=== PATIENT | female | born 1955 | race Caucasian/White ===

== ENCOUNTER 2023-07-09 19:45 | Inpatient (IN) | payer MEDICARE, OTHER ==
[~2023-07-09] VITALS: Ht 157.5 cm; Wt 80.3 kg
[2023-07-09 19:45] VITALS: BP 118/70; TEMP 98.3; O2SAT 93
[2023-07-09] MEDS ORDERED: MAGNESIUM HYDROXIDE 30 ML LIQUID UDC GT PRN (21:30)
[2023-07-09] MEDS ORDERED: ONDANSETRON 4 MG/2 ML VIAL IV PRN (21:30)
[2023-07-09] MEDS ORDERED: ALBUTEROL SULFATE 2.5 MG/3 ML NEBU NEB PRN (21:30)
[2023-07-09] MEDS ORDERED: GABA-532 GT (21:57)
[2023-07-09] MEDS ORDERED: LEVO200T9 GT (21:57)
[2023-07-09] MEDS ORDERED: LEVE100S GT (21:57)
[2023-07-09] MEDS ORDERED: OMEG1400 GT (21:57)
[2023-07-09] MEDS ORDERED: MULT-213 GT (21:57)
[2023-07-09] MEDS ORDERED: ACET-637 GT (21:57)
[2023-07-09] MEDS ORDERED: SENN8.6T19 GT (21:57)
[2023-07-09] MEDS ORDERED: FAMO20TA8 GT (21:57)
[2023-07-09] MEDS ORDERED: MAGN400O6 GT (21:57)
[2023-07-09] MEDS ORDERED: ACET325T53 GT ×2 (21:57)
[2023-07-09] MEDS ORDERED: METO25TA6 GT (21:57)
[2023-07-09] MEDS ORDERED: VALP250S4 GT (21:57)
[2023-07-09] MEDS ORDERED: CHOL100062 GT (21:57)
[2023-07-09] MEDS ORDERED: QUET50TA GT (21:57)
[2023-07-09] MEDS ORDERED: SERT25TA GT (21:57)
[2023-07-09 23:00] VITALS: O2SAT 98
[2023-07-10] VITALS (10 sets, daily range): BP systolic 107–133; BP diastolic 57–78; TEMP 98–99.8; O2SAT 94–99
[2023-07-10] MEDS: JEVITY 1.2 1000 ML LIQUID GT PRN (00:53)
[2023-07-10] MEDS ORDERED: CLOB15CR10 TP (05:17)
[2023-07-10] MEDS ORDERED: CHLO473M3 PO (05:17)
[2023-07-10] MEDS ORDERED: DOCU100T2 GT (05:17)
[2023-07-10] MEDS ORDERED: NA P133E RC (05:17)
[2023-07-10] MEDS ORDERED: DIPH25TA25 GT (05:17)
[2023-07-10] MEDS ORDERED: IPRA4AER IH (05:17)
[2023-07-10] MEDS ORDERED: CRAN425C6 GT (05:17)
[2023-07-10] MEDS ORDERED: BISA10SU95 RC (05:17)
[2023-07-10] MEDS ORDERED: FERR220S16 GT (05:17)
[2023-07-10] MEDS ORDERED: DOXY100T2 GT (05:17)
[2023-07-10] MEDS ORDERED: ATOR20TA GT (05:17)
[2023-07-10] MEDS ORDERED: POLY15DR27 EACHEYE (05:17)
[2023-07-10] MEDS ORDERED: ASPI-1169 GT (05:17)
[2023-07-10] MEDS ORDERED: BISACODYL 10 MG SUPP.RECT RC PRN (06:15)
[2023-07-10] MEDS ORDERED: MAGNESIUM HYDROXIDE 30 ML LIQUID UDC GT PRN (06:15)
[2023-07-10] MEDS ORDERED: FLEET ENEMA 133 ML BOTTLE RC PRN (06:15)
[2023-07-10] MEDS: PANTOPRAZOLE ORAL SUSPENSION 40 MG SUSPDR.PKT GT SCH (06:46)
[2023-07-10] MEDS: LEVOTHYROXINE SODIUM 200 MCG TABLET GT SCH (06:46)
[2023-07-10] MEDS: ACETAMINOPHEN 650 MG/20.3 ML LIQUID UDC GT PRN (06:49)
[2023-07-10 06:59] LABS: BASOPHILS # (AUTO) 0.1 K/UL (0.0-0.2); BASOPHILS % (AUTO) 0.4 % (0.0-2.0); EOSINOPHILS # (AUTO) 0.4 K/uL (0.0-0.7); EOSINOPHILS % (AUTO) 2.9 % (0.0-7.0); LYMPHOCYTES % (AUTO) 23.9 % (20.5-51.5); MEAN CORPUSCULAR HEMOGLOBIN 28.1 uug (24.7-32.8); MEAN CORPUSCULAR HGB CONC 32 g/dL (32.3-35.6); MEAN CORPUSCULAR VOLUME 87.4 fL (75.5-95.3); MONOCYTES # (AUTO) 0.8 K/uL (0.1-1.30); MONOCYTES % (AUTO) 6.5 % (0.0-11.0); NEUTROPHILS # (AUTO) 8.4 K/uL (1.8-8.9); NEUTROPHILS % (AUTO) 66.3 % (38.5-71.5); PLATELET COUNT (AUTO) 662 K/uL (179-408); RED BLOOD CELL COUNT(AUTO) 3.21 MIL/uL (3.63-4.92); RED CELL DISTRIBUTION WIDTH 17.4 % (12.3-17.7); WHITE BLOOD COUNT (AUTO) 12.7 K/uL (3.8-11.8)
[2023-07-10] MEDS ORDERED: PANTOPRAZOLE SODIUM 40 MG TABLET.DR PO SCH (07:00)
[2023-07-10 07:16] LABS: DIFFERENTIAL COMMENT 1
[2023-07-10 07:26] LABS: ALANINE AMINOTRANSFERASE 17 U/L (14-59); ALBUMIN 2.6 g/dL (3.4-5.0); ALKALINE PHOSPHATASE 58 U/L (50-136); ASPARTATE AMINOTRANSFERASE 15 U/L (15-37); BILIRUBIN,TOTAL 0.5 mg/dL (0.2-1.0); CALCIUM 9.6 mg/dL (8.5-10.1); CARBON DIOXIDE 34 mmol/L (21-32); CHLORIDE 105 mmol/L (98-107); CHOLESTEROL 149 mg/dL (<200); CREATININE 0.9 mg/dL (0.6-1.3); GLUCOSE 112 mg/dL (74-106); HDL CHOLESTEROL 36 mg/dL (40-60); MAGNESIUM 2.4 mg/dL (1.8-2.4); NT-PRO BNP 356 pg/mL (0-125); PHOSPHOROUS 3.8 mg/dL (2.5-4.9); POTASSIUM 4.5 mmol/L (3.5-5.1); SODIUM SERUM 144 mmol/L (136-145); TOTAL PROTEIN, SERUM 8.3 g/dL (6.4-8.2); TRIGLYCERIDES 184 MG/DL (30-150); UREA NITROGEN, BLOOD 22 mg/dL (7-18)
[2023-07-10 07:27] LABS: THYROID STIMULATING HORMONE 36.111 mIU/mL (0.358-3.740)
[2023-07-10 07:30] LABS: IRON, SERUM 26 ug/dL (50-175)
[2023-07-10] MEDS: SENNOSIDES 1 TABLET GT SCH (08:34)
[2023-07-10] MEDS: VALPROIC ACID 250 MG/5 ML LIQUID UDC GT SCH (08:34)
[2023-07-10] MEDS: DOCUSATE SODIUM 100 MG/10 ML LIQUID UDC GT SCH (08:34)
[2023-07-10] MEDS: GABAPENTIN 100 MG CAPSULE GT SCH (08:34)
[2023-07-10] MEDS: FERROUS SULFATE 300 MG/5 ML LIQUID UDC GT SCH (08:34)
[2023-07-10] MEDS: MULTIVIT, IRON, MIN NO. 8, FA TABLET GT SCH (08:34)
[2023-07-10] MEDS: SERTRALINE HCL 50 MG TABLET GT SCH (08:34)
[2023-07-10] MEDS: levETIRAcetam 500 MG/5 ML LIQUID UDC GT SCH (08:34)
[2023-07-10] MEDS: QUETIAPINE FUMARATE 25 MG TABLET GT SCH (08:35)
[2023-07-10] MEDS: METOPROLOL TARTRATE 25 MG TABLET GT SCH (08:35)
[2023-07-10] MEDS: CHLORHEXIDINE GLUCONATE 15 ML MOUTHWASH MM SCH (08:57)
[2023-07-10] MEDS: CLOBETASOL PROPIONATE 0.05% CREAM 15 GM TUBE TP SCH (08:58)
[2023-07-10] MEDS ORDERED: CLOBETASOL PROPIONATE 0.05% CREAM 15 GM TUBE TP SCH (09:00)
[2023-07-10] MEDS: POLYVINYL ALCOHOL OPHT DROPS 15 ML BOTTLE EACHEYE SCH (11:09)
[2023-07-10] MEDS ORDERED: REMEDY ESSENTIAL ZINC PASTE 113 GM TOP PRN (14:15)
[2023-07-10 18:38] LABS: *CLARITY,URINE CLOUDY (CLEAR); *COLOR,URINE YELLOW (YELLOW)
[2023-07-10 18:39] LABS: *BILIRUBIN,URIN NEGATIVE (NEGATIVE); *KETONES,URINE NEGATIVE (NEGATIVE); UGLUCOSE NEGATIVE (NEGATIVE)
[2023-07-10 18:40] LABS: *BLOOD, URINE 3+ (NEGATIVE); *PROTEIN,URINE 1+ (NEGATIVE); *UROBILINOGEN,URINE 0.2 E.U./dl (NORMAL); NITRITE, URINE NEGATIVE (NEGATIVE); PH,URINE 7.5 (5.0-8.0)
[2023-07-10 18:41] LABS: LEUKOCYTE ESTERASE ,URINE 2+ (NEGATIVE)
[2023-07-10] MEDS: REMEDY ESSENTIAL ZINC PASTE 113 GM TOP SCH (20:23)
[2023-07-10] MEDS: IV D5 1/2 NS 1000 ML 1,000 ML IV SCH (21:30)
[2023-07-10] MEDS ORDERED: CEFTRIAXONE /D5W 50ML IVPB **ER PYXIS IV ONE (21:50)
[2023-07-10] MEDS: CEFTRIAXONE 1 G VIAL IV SCH (22:03)
[2023-07-11] VITALS (11 sets, daily range): BP systolic 118–143; BP diastolic 54–87; TEMP 98.1–98.7; O2SAT 95–100
[2023-07-11] MEDS: CEFTRIAXONE 1 G in IV DEXTROSE 5% 50 ML IV SCH (22:30)
[2023-07-11] MEDS: MORPHINE SULFATE 2 MG/1 ML DISP.SYRIN IV PRN (22:50)
[2023-07-12] VITALS (14 sets, daily range): BP systolic 98–138; BP diastolic 52–65; TEMP 97.1–98.9; O2SAT 94–100
[2023-07-12 06:40] LABS: BASOPHILS # (AUTO) 0.1 K/UL (0.0-0.2); BASOPHILS % (AUTO) 0.5 % (0.0-2.0); EOSINOPHILS # (AUTO) 0.5 K/uL (0.0-0.7); EOSINOPHILS % (AUTO) 4.9 % (0.0-7.0); HEMATOCRIT 25.1 % (31.2-41.9); HEMOGLOBIN 8.1 g/dL (10.9-14.3); LYMPHOCYTES # (AUTO) 2.9 K/uL (0.8-4.8); MEAN CORPUSCULAR HEMOGLOBIN 28.6 uug (24.7-32.8); MEAN CORPUSCULAR HGB CONC 32 g/dL (32.3-35.6); MEAN CORPUSCULAR VOLUME 88.4 fL (75.5-95.3); MONOCYTES # (AUTO) 0.7 K/uL (0.1-1.30); MONOCYTES % (AUTO) 6.5 % (0.0-11.0); NEUTROPHILS # (AUTO) 6.9 K/uL (1.8-8.9); NEUTROPHILS % (AUTO) 62.1 % (38.5-71.5); PLATELET COUNT (AUTO) 530 K/uL (179-408); RED BLOOD CELL COUNT(AUTO) 2.84 MIL/uL (3.63-4.92); RED CELL DISTRIBUTION WIDTH 17.3 % (12.3-17.7); WHITE BLOOD COUNT (AUTO) 11.1 K/uL (3.8-11.8)
[2023-07-12 06:45] LABS: CALCIUM 8.1 mg/dL (8.5-10.1); MAGNESIUM 2.3 mg/dL (1.8-2.4); PHOSPHOROUS 3.4 mg/dL (2.5-4.9); POTASSIUM 3.9 mmol/L (3.5-5.1)
[2023-07-12 06:50] LABS: DIFFERENTIAL COMMENT 1
[2023-07-12] MEDS: JEVITY 1.2 1000 ML LIQUID GT PRN (11:51)
[2023-07-13] VITALS: BP 138/62; TEMP 98; O2SAT 100
[2023-07-13 03:05] VITALS: O2SAT 98
[2023-07-13 06:00] VITALS: BP 159/75; TEMP 97.4; O2SAT 98
[2023-07-13 06:30] VITALS: BP 137/69
[2023-07-13 07:42] VITALS: BP 146/62; TEMP 98.2; O2SAT 98
[2023-07-13 12:00] VITALS: BP 148/64; TEMP 98; O2SAT 99
== END 2023-07-13 15:30 | DRG 562 ==
LOC: MEDSURG3 19:45 → TELE3 07-10 07:49
PROVIDERS: ADMIT Internal Medicine; ATTEND Internal Medicine
PROC: 05HB33Z Insertion of Infusion Device into Right Basilic Vein, Percutaneous Approach (ICD-10-PCS; principal; 2023-07-10)
DX: S42.332A Displaced oblique fracture of shaft of humerus, left arm, initial encounter for closed fracture (principal); G93.41 Metabolic encephalopathy; J96.10 Chronic respiratory failure, unspecified whether with hypoxia or hypercapnia; N39.0 Urinary tract infection, site not specified; X58.XXXA Exposure to other specified factors, initial encounter; Y92.129 Unspecified place in nursing home as the place of occurrence of the external cause; G40.909 Epilepsy, unspecified, not intractable, without status epilepticus; Z53.9 Procedure and treatment not carried out, unspecified reason; Z66 Do not resuscitate; Z88.1 Allergy status to other antibiotic agents; E03.9 Hypothyroidism, unspecified; D63.8 Anemia in other chronic diseases classified elsewhere; Z79.82 Long term (current) use of aspirin; Z79.899 Other long term (current) drug therapy; Z79.890 Hormone replacement therapy; Z93.0 Tracheostomy status
CPT/HCPCS: 36415; 71045; 83550; 83735; 84100; 84443; 84484; 85025; 85610; 94760; C1758; G0378; J0696; J2270